=== PATIENT | male | born 1955 ===

== ENCOUNTER 2021-01-22 15:20 | Emergency (ER) | payer SELFPAY ==
--- NOTE | 2021-01-22 15:41 | ED GU-Male ---
General Stated Complaint: URINE AND GROIN IRRITATION History of Present Illness Date Seen by Provider: Jan 22, 2021 Time Seen by Provider: 15:41 Initial Comments 65-year-old male presents with some dysuria. Patient reports that for about a week he has had quite a bit of burning discomfort when he urinates and in his groin. Is got a bit of pain in his right flank that wraps around to his right lower abdomen and groin. 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 He does reports that about 4 months ago he had some labs checked back home in [place] and was told that he needs to have been followed up on because he was having some issues with his kidney function. Patient reports that he did not recall that until just few days ago and remembered that. He denies any gross blood in his urine. No reports of fevers or chills. He does have some nausea and decreased appetite. Allergies and Home Medications Patient Home Medication List Home Medication List Reviewed: Yes Review of Systems Review of Systems Constitutional: No chills; fever, malaise Respiratory: no symptoms reported Cardiovascular: no symptoms reported Gastrointestinal: see HPI, nausea Genitourinary: see HPI, burning, dysuria Musculoskeletal: no symptoms reported Skin: no symptoms reported Psychiatric/Neurological: No Symptoms Reported Endocrine: No Symptoms Reported Past [id number]-[id number] Hx Past Med/Social Hx: Reviewed Nursing Past Med/Soc Hx Physical Exam Vital Signs Vital Signs - First Documented 01/22/21 15:35 Temp 37.1 Pulse 90 Resp 18 B/P (MAP) 176/78 (110) Pulse Ox 100 Capillary Refill : Height, Weight, BMI Height: '" Weight: lbs. oz. kg; BMI Method: General Appearance: WD/WN, no apparent distress Cardiovascular: normal peripheral pulses, regular rate, rhythm Respiratory: lungs clear, normal breath sounds Gastrointestinal: soft, tenderness (Mild suprapubic) Back: CVA tenderness (R) (Mild) Extremities: normal range of motion, non-tender Neurologic/Psychiatric: alert, normal mood/affect, oriented x 3 Skin: normal color, warm/dry Progress/Results/Core Measures Suspected Sepsis SIRS Temperature: Pulse: Respiratory Rate: Laboratory Tests 01/22/21 16:08: White Blood Count 6.8 Blood Pressure / Mean: Laboratory Tests 01/22/21 16:08: Creatinine 3.60H, Platelet Count 279 Results/Orders Lab Results Laboratory Tests Test 01/22/21 15:43 01/22/21 16:08 Range/Units Urine Color YELLOW Urine Clarity CLEAR Urine pH 6.0 5-9 Urine Specific [place] 1.025 H 1.016-1.022 Urine Protein 2+ H NEGATIVE Urine Glucose (UA) NEGATIVE NEGATIVE Urine Ketones NEGATIVE NEGATIVE Urine Nitrite NEGATIVE NEGATIVE Urine Bilirubin NEGATIVE NEGATIVE Urine Urobilinogen 0.2 < = 1.0 MG/DL Urine Leukocyte Esterase NEGATIVE NEGATIVE Urine RBC (Auto) TRACE H NEGATIVE Urine RBC NONE /HPF Urine WBC 0-2 /HPF Urine Squamous Epithelial Cells RARE /HPF Urine Crystals NONE /LPF Urine Bacteria NEGATIVE /HPF Urine Casts NONE /LPF Urine Mucus NEGATIVE /LPF Urine Culture Indicated NO White Blood Count 6.8 4.3-11.0 10^3/uL Red Blood Count 3.83 L 4.35-5.85 10^6/uL Hemoglobin 10.3 L 13.3-17.7 G/DL Hematocrit 30 L 40-54 % Mean Corpuscular Volume 78 L 80-99 FL Mean Corpuscular Hemoglobin 27 25-34 PG Mean Corpuscular Hemoglobin Concent 35 32-36 G/DL Red Cell Distribution Width 13.7 10.0-14.5 % Platelet Count 279 130-400 10^3/uL Mean Platelet Volume 9.9 7.4-10.4 FL Immature Granulocyte % (Auto) 0 % Neutrophils (%) (Auto) 69 42-75 % Lymphocytes (%) (Auto) 21 12-44 % Monocytes (%) (Auto) 7 0-12 % Eosinophils (%) (Auto) 2 0-10 % Basophils (%) (Auto) 1 0-10 % Neutrophils # (Auto) 4.7 1.8-7.8 X 10^3 Lymphocytes # (Auto) 1.4 1.0-4.0 X 10^3 Monocytes # (Auto) 0.5 0.0-1.0 X 10^3 Eosinophils # (Auto) 0.1 0.0-0.3 10^3/uL Basophils # (Auto) 0.0 0.0-0.1 10^3/uL Immature Granulocyte # (Auto) 0.0 0.0-0.1 10^3/uL Sodium Level 136 135-145 MMOL/L Potassium Level 4.3 3.6-5.0 MMOL/L Chloride Level 105 98-107 MMOL/L Carbon Dioxide Level 19 L 21-32 MMOL/L Anion Gap 12 5-14 MMOL/L Blood Urea Nitrogen 40 H 7-18 MG/DL Creatinine 3.60 H 0.60-1.30 MG/DL Estimat Glomerular Filtration Rate 17 BUN/Creatinine Ratio 11 Glucose Level 166 H 70-105 MG/DL Calcium Level 8.9 8.5-10.1 MG/DL My Orders Orders - MA,YAMEL L DO Ua Culture If Indicated (01/22/21 15:42) Basic Metabolic Panel (01/22/21 15:48) Cbc With Automated Diff (01/22/21 15:48) Ct Abdomen/Pelvis Wo (01/22/21 16:28) Vital Signs/I&O 01/22/21 15:35 Temp 37.1 Pulse 90 Resp 18 B/P (MAP) 176/78 (110) Pulse Ox 100 Capillary Refill : Progress Note : Progress Note Patient with a BUN of 40 and a creatinine at 3.6. Patient was offered IV fluids but declined. Discussed with patient the need for further outpatient evaluation along with CT results. Patient's creatinine seems to be at his baseline from what he reported to me about 3 to 4 months ago that he never followed up on. Discussed with him the importance of following up to have this further evaluated for his chronic kidney disease. Patient is having back pain is may be more consistent with muscle then interabdominal pathology. I offered him Flexeril along with suggestion of some topical medication. Discussed with him the need to stay away from NSAIDs due to his chronic kidney disease. Patient stable and discharged Departure Impression Primary Impression: Chronic kidney disease (CKD) Qualified Codes: N18.9 - Chronic kidney disease, unspecified Additional Impressions: Acute right flank pain Dysuria Disposition: 01 HOME, SELF-CARE Condition: Stable Departure-Patient Inst. Referrals: NO,LOCAL PHYSICIAN (PCP/Family) Primary Care Physician Patient Instructions: Kidney Disease Diet (For People Not on Dialysis), Chronic Kidney Disease, Flank Pain ED Add. Discharge Instructions: 4% topical lidocaine with menthol to affected area as instructed on package [id number] Voltaren cream as instructed on package Drink plenty of fluids Follow-up with your primary care provider as soon as possible for further evaluation of your chronic kidney disease Scripts Cyclobenzaprine HCl (Cyclobenzaprine HCl) 10 Mg Tablet 10 MG PO Q8H PRN for SPASMS, #15 TAB 0 Refills Prov: YAMEL MA DO 01/22/21 YAMEL MA DO Jan 22, 2021 15:41
[2021-01-22 16:12] LABS: BACTERIA,URINE NEGATIVE /HPF; BILIRUBIN,URINE NEGATIVE (NEGATIVE); CLARITY,URINE CLEAR; COLOR,URINE YELLOW; GLUCOSE, URINE (UA) NEGATIVE (NEGATIVE); KETONES,URINE NEGATIVE (NEGATIVE); LEUKOCYTE ESTERASE ,URINE NEGATIVE (NEGATIVE); NITRITE,URINE NEGATIVE (NEGATIVE); PROTEIN,URINE 2+ (NEGATIVE); SQUAMOUS EPITHELIAL CELL,UR RARE /HPF; WBC,URINE 0-2 /HPF
[2021-01-22 16:20] LABS: BASOPHILS % (AUTO) 1 % (0-10); EOSINOPHILS % (AUTO) 2 % (0-10); HEMATOCRIT 30 % (40-54); HEMOGLOBIN 10.3 G/DL (13.3-17.7); LYMPHOCYTES % (AUTO) 21 % (12-44); MEAN CORPUSCULAR HEMOGLOBIN 27 PG (25-34); MEAN CORPUSCULAR HGB CONC 35 G/DL (32-36); MEAN CORPUSCULAR VOLUME 78 FL (80-99); MEAN PLATELET VOLUME 9.9 FL (7.4-10.4); MONOCYTES % (AUTO) 7 % (0-12); NEUTROPHILS % (AUTO) 69 % (42-75); PLATELET COUNT 279 10^3/uL (130-400); WHITE BLOOD COUNT 6.8 10^3/uL (4.3-11.0)
[2021-01-22 16:21] LABS: EOSINOPHILS # (AUTO) 0.1 10^3/uL (0.0-0.3); LYMPHOCYTES # (AUTO) 1.4 X 10^3 (1.0-4.0); MONOCYTES # (AUTO) 0.5 X 10^3 (0.0-1.0); NEUTROPHILS # (AUTO) 4.7 X 10^3 (1.8-7.8)
[2021-01-22 16:45] LABS: CALCIUM 8.9 MG/DL (8.5-10.1); CREATININE SERUM 3.6 MG/DL (0.60-1.30); POTASSIUM 4.3 MMOL/L (3.6-5.0)
--- NOTE | 2021-01-22 16:53 | Diagnostic Imaging Report ---
EXAMINATION: CT abdomen and pelvis without contrast. TECHNIQUE: Multiple contiguous axial images were obtained through the abdomen and pelvis without the use of intravenous contrast. All CT scans use one or more of the following dose optimizing techniques: automated exposure control, MA and/or KvP adjustment based on patient size and exam type or iterative reconstruction. HISTORY: Right flank pain and hematuria. COMPARISON: None available. FINDINGS: Limited views of the lower thorax are unremarkable. The liver is normal without focal lesion. There is no biliary ductal dilation. Gallbladder is normal. Pancreas is normal. Spleen is normal. Adrenal glands are normal. There is an indeterminate lobulation to the upper pole of the left kidney measuring 2.7 x 1.8 cm. A few cysts are seen in the kidneys. There is no hydronephrosis. Urinary bladder is normal. Visualized bowel is normal in caliber without obstruction or inflammation. The appendix is normal. No free fluid or air. No abdominal or pelvic lymphadenopathy. Aorta is normal in caliber without aneurysm. There are no suspicious osseous lesions. IMPRESSION: 1. Indeterminate left renal lesion versus lobulation of the left renal cortex. Renal protocol CT is recommended for further evaluation. Dictated by: Dictated on workstation # [id number]
[2021-01-22] MEDS ORDERED: CYCL10TA9 PO (17:11)
[2021-01-22 17:28] VITALS: BP 162/73
== END 2021-01-22 17:28 | disposition home or self-care (01) ==
LOC: ER FS 15:22
DX: N18.9 Chronic kidney disease, unspecified (principal); R10.31 Right lower quadrant pain; R30.0 Dysuria
CPT/HCPCS: 36415; 74176; 80048; 81000; 85025